=== PATIENT | male | born 1980 | race Caucasian/White ===

== ENCOUNTER 2020-07-28 06:15 | Observation (INO) ==
--- NOTE | 2020-07-15 10:56 | PAT Medication Instructions ---
Medication Instructions Date of Service July 15, 2020 Home Medications Gelatin Otc 1,680 mg PO QPM cabergoline [Dostinex] 0.125 mg PO WK celecoxib [Celebrex] 200 mg PO BID gabapentin 300 mg PO TID glucosamine sulfate 1 mg PO QAM multivitamin 1 tab PO QPM omega-3 fatty acids [Fish Oil Concentrate] 2 mg PO BID Continue as directed cabergoline [Dostinex] 0.125 mg PO WK ASK your surgeon for instructions celecoxib [Celebrex] 200 mg PO BID STOP taking 2 weeks before surgery If surgery is within 2 weeks, stop taking as soon as possible. Gelatin Otc 1,680 mg PO QPM glucosamine sulfate 1 mg PO QAM omega-3 fatty acids [Fish Oil Concentrate] 2 mg PO BID DO NOT take the morning of surgery gabapentin 300 mg PO TID Take evening before surgery gabapentin 300 mg PO TID multivitamin 1 tab PO QPM NOTHING TO EAT OR DRINK AFTER MIDNIGHT Other Notes If you have any questions please call us at [phone] or [phone] or [phone] or [phone]
--- NOTE | 2020-07-15 11:37 | Anesthesiology Consultation ---
Date of Service July 15, 2020 Assessment & Plan (1) Encounter for pre-operative examination: COVID Status: As of 07/15 assessment, patient denies travel to endemic area, known exposure/sick contacts, or symptoms of COVID19. Patient instructed that they and their household members must follow strict social distancing guidelines, wear a mask in public and avoid travel/events/gatherings for 14 days prior to surgery. Preoperative COVID19 testing to be completed prior to surgery per surgeon's arrangements (pt reports to be done 07/22). Patient made aware to self-isolate as much as possible between COVID testing and surgery. He is scheduled for a sleep study the evening of 07/22, but will be masked and only interacting with HCWs with PPE. Chart Review Chart Review: Acceptable Risk for Surgery and Patient seen in Pre Admission Testing Teaching & Discussion Instructed NPO after midnight before surgery, except medications with 15 cc of water. Medication instructions provided according to the PAT guidelines. History Surgery Operation Date: 07/28/20 09:35 Proposed Procedures p C4-C5 Anterior Cervical Discectomy and Fusion, Spinal Cord Monitoring - Reynaldo Anders DO Height/Weight Height: 5 ft 10 in Weight: 83.4 kg Allergies Allergy/AdvReac Type Severity Reaction Status Date / Time CHOLESTATIN Allergy Unknown Unknown Uncoded 07/04/20 11:20 Medications Home Medications Medication Instructions Recorded Confirmed Last Taken Gelatin Otc 1,680 mg PO QPM 07/04/20 07/04/20 Unknown cabergoline [Dostinex] 0.125 mg PO WK 07/04/20 07/04/20 Unknown celecoxib [Celebrex] 200 mg PO BID 07/04/20 07/04/20 Unknown gabapentin 300 mg PO TID 07/04/20 07/04/20 Unknown glucosamine sulfate 1 mg PO QAM 07/04/20 07/04/20 Unknown multivitamin 1 tab PO QPM 07/04/20 07/04/20 Unknown omega-3 fatty acids [Fish Oil 2 mg PO BID 07/04/20 07/04/20 Unknown Concentrate] Past Medical History Medical History (Updated 07/15/20 @ 11:44 by Leo Leggett) Chronic back pain NECK TO UPPER BACK/ARMS ON OCC Elevated prolactin level On cabergoline, following with endocrinology and PCP. No pituitary tumor found on imaging. No significant past medical history Weight loss, intentional 100 LB WT LOSS SINCE 09/2019 Exercise / Class Metabolic Activity 1 > 8 Run/Swim/Ski/Tennis Past Surgical History Surgical History History of anesthesia reaction SLOW TO WAKE. Denies reintubation, unplanned admission, ICU History of carpal tunnel release History of elbow surgery Past Anesthesia History No Hx of Anesthesia Complications and No Family Hx of Anesthesia Complications History of PONV No Hx of PONV and Hx of Motion Sickness STOP BANG Total 2 Social History Smoking Status: Never smoker Do You Dip or Chew Tobacco: No Hx Alcohol Use: No Hx Substance Use: No Review of Systems Pt denies any recent chest pain, shortness of breath, palpitations, cough, fever, URI, or uncontrolled acid reflux. Physical Exam Vital Signs BP: 142/78 (pt reports this is elevated for him, usually 120s systolic) P: 80bpm SPO2: 98% RA T: 98.2 F R: 16 ENMT Mouth: no dental restorations, no chipped teeth and no loose teeth Thyromental Distance: > or= 3.5 Finger Breadths Mallampati Class: I Neck + limited neck extension (mildly) and + facial hair (thick medium length gallagher, pt will shave) Respiratory normal respiratory effort, lungs clear to auscultation Cardiovascular Rate/Rhythm: regular rate and regular rhythm Heart Sounds: no murmur Testing Laboratory Results 07/15/20 12:40 07/15/20 11:49 PT 10.9 Seconds (9.0-12.0) 07/15/20 12:40 INR 1.0 (0.9-1.1) 07/15/20 12:40 APTT 29.9 Seconds (21.0-31.0) 07/15/20 12:40 Urine Color Dark Yellow 07/15/20 12:40 Urine Appearance Clear (Clear) 07/15/20 12:40 Urine pH 5.0 (4.5-7.5) 07/15/20 12:40 Ur Specific [place] 1.024 (1.000-1.030) 07/15/20 12:40 Urine Protein Negative (Negative) 07/15/20 12:40 Urine Glucose (UA) Negative (Negative) 07/15/20 12:40 Urine Ketones Trace (Negative) H 07/15/20 12:40 Urine Nitrite Negative (Negative) 07/15/20 12:40 Ur Leukocyte Esterase Negative (Negative) 07/15/20 12:40 Blood Type A Positive 07/15/20 12:40 Antibody Screen NEGATIVE 07/15/20 12:40 Electrocardiogram Date: 07/15/20 Findings: + NSR @ (62bpm) Chest X-Ray Date: 07/15/20 Findings: + NAD Cervical Spine Date: 11/10/19 No fracture or subluxation within the cervical spine. Mild degenerative changes as described above.
--- NOTE | 2020-07-15 12:28 | XRay Report ---
XR chest Pre-admission PA/Lat CLINICAL HISTORY: Preoperative chest COMPARISON STUDY: No previous studies for comparison. FINDINGS: The cardiac and mediastinal contours are normal. There is no evidence of focal pulmonary co nsolidation. There is no evidence of failure. No pleural effusions are visualized.[ IMPRESSION: No active disease in the chest. ACT 112: Negative or not required by law. Electronically signed by: Master Clayton M.D. 07/15/2020 12:27 PM
[2020-07-15 13:22] LABS: Basophils # (auto) 0.04 K/uL (0-0.2); Basophils % (auto) 0.7 %; Eosinophils # (auto) 0.14 K/uL (0-0.5); Eosinophils % (auto) 2.5 %; Hematocrit (blood only) 45.9 % (42-52); Hemoglobin 15.2 g/dL (14.0-18.0); Immature Granulocytes # (auto) 0.01 K/uL (0.00-0.02); Immature Granulocytes % (auto) 0.2 %; Lymphocytes # (auto) 1.95 K/uL (1.2-3.4); Lymphocytes % (auto) 34.8 %; Mean Corpuscular Hemoglobin 28.3 pg (25-34); Mean Corpuscular Hgb Conc 33.1 g/dL (32-36); Mean Corpuscular Volume 85.5 fL (80-100); Mean Platelet Volume 9.3 fL (7.4-10.4); Monocytes % (auto) 7.1 %; Neutrophils # (auto) 3.06 K/uL (1.4-6.5); Neutrophils % (auto) 54.7 %; Platelet Count 199 K/uL (130-400); RDW Coefficient of Variation 13.9 % (11.5-14.5); RDW Standard Deviation 43.4 fL (36.4-46.3); Red Blood Count 5.37 M/uL (4.7-6.1)
[2020-07-15 13:27] LABS: Appearance Urine Clear (Clear); Bilirubin Urine Negative (Negative); Blood Urine Negative (Negative); Color Urine Dark Yellow; Glucose Urine UA Negative (Negative); Ketones Urine Trace (Negative); Leukocyte Esterase Urine Negative (Negative); Nitrite Urine Negative (Negative); Protein Urine Negative (Negative); Specific Gravity Urine 1.024 (1.000-1.030); Urobilinogen Urine Negative (Negative)
[2020-07-15 13:38] LABS: BUN Creatinine Ratio 18.3 (10-20); Calcium 9.8 mg/dl (8.5-10.1); Creatinine Clr Calc Pharmacy 107.9 ml/min; Est GFR (African American) 117.1; Potassium 4.3 mmol/L (3.5-5.1)
[2020-07-15 13:40] LABS: Partial Thromboplastin Ratio 1.1; Partial Thromboplastin Time 29.9 Seconds (21.0-31.0); Prothrombin Time 10.9 Seconds (9.0-12.0)
--- NOTE | 2020-07-16 05:00 | Electrocardiogram Report ---
Test Reason : Blood Pressure : / mmHG Vent. Rate : 062 BPM Atrial Rate : 062 BPM P-R Int : 178 ms QRS Dur : 084 ms QT Int : 388 ms P-R-T Axes : 055 070 067 degrees QTc Int : 393 ms Normal sinus rhythm Normal ECG No previous ECGs available Confirmed by Soham Julio ([id number]) on 07/16/2020 5:00:13 AM Referred By: Jian Anders Confirmed By:Soham Julio
[~2020-07-28 06:15] MED LIST: ACETAMINOPHEN 500 MG TAB PO SCH; CeleBREX 200 MG CAP PO SCH; GABAPENTIN 900 MG DOSE PO SCH; LR 15ML/HR IV SCH; ceFAZolin 2000MG 2,000 MG/15 ML SYR IV SCH
[2020-07-28] MEDS ORDERED: BACITRACIN INJ 50,000 UNIT VIAL ONE (06:57)
[2020-07-28] MEDS ORDERED: PROPOFOL IV EMULSION 10 MG/ML 100 ML VIAL IV ONE (07:22)
[2020-07-28] MEDS ORDERED: LIDOCAINE 2% JELLY 5 ML TUBE ONE (07:22)
[2020-07-28] MEDS ORDERED: MIDAZOLAM HCL 1 MG/ML 2ML VIAL ONE (07:30)
[2020-07-28] MEDS ORDERED: fentaNYL citrate 100 MCG/2 ML VIAL ONE ×3 (07:30→09:45)
[2020-07-28] MEDS ORDERED: KETAMINE 50 MG/5 ML SYRINGE ONE (07:31)
--- NOTE | 2020-07-28 07:34 | History & Physical Bridge Note ---
Date of Service July 28, 2020 History & Physical Bridge Note I have examined the patient, reviewed the History & Physical and in the interval since the performance of the History & Physical I have noted the following changes of clinical significance: no changes noted
--- NOTE | 2020-07-28 07:35 | History & Physical Report ---
Date of Service July 28, 2020 Assessment & Plan (1) Cervical stenosis of spinal canal: Admission and Anticipated Discharge Date Admission Date: C4-C5 anterior cervical discectomy and fusion History of Present Illness Chief Complaint: Neck and arm pain Primary Care Provider: Kallie Walsh PA-C This is a 40-year-old male who presents with chronic persistent neck and arm pain after failing course of nonoperative care is here for surgical invention. Allergies Allergy/AdvReac Type Severity Reaction Status Date / Time CHOLESTATIN Allergy Unknown Unknown Uncoded 07/28/20 06:43 Home Medications Medication Instructions Recorded Confirmed Type Gelatin Otc 1,680 mg PO QPM 07/04/20 07/04/20 History cabergoline [Dostinex] 0.125 mg PO WK 07/04/20 07/04/20 History celecoxib [Celebrex] 200 mg PO BID 07/04/20 07/04/20 History gabapentin 300 mg PO TID 07/04/20 07/04/20 History glucosamine sulfate 1 mg PO QAM 07/04/20 07/04/20 History multivitamin 1 tab PO QPM 07/04/20 07/04/20 History omega-3 fatty acids [Fish Oil 2 mg PO BID 07/04/20 07/04/20 History Concentrate] Past Med/Surg History Medical History (Updated 07/28/20 @ 07:35 by Jian Anders DO) Chronic back pain NECK TO UPPER BACK/ARMS ON OCC Elevated prolactin level On cabergoline, following with endocrinology and PCP. No pituitary tumor found on imaging. Weight loss, intentional 100 LB WT LOSS SINCE 09/2019 Surgical History History of anesthesia reaction SLOW TO WAKE. Denies reintubation, unplanned admission, ICU History of carpal tunnel release History of elbow surgery Social History Smoking Status: Never smoker Second Hand Exposure: Yes ( A CHILD); Do You Dip or Chew Tobacco: No; Hx Alcohol Use: No Hx Substance Use: No Preferred Language: [place]olan Communication Ability: Effective [employer] Required: No Beliefs That Will Affect Care: None marital status: Single Current Living Situation: Family and Significant Other current occupational status: employed Other Information That Helps Us Care for You: No Feels Safe at Home: Yes Safety Concerns: Feels Safe At This Time Assistive Devices: None Physical Exam Physical Exam: Patient's alert and oriented Heart regular rate and rhythm Lungs clear to auscultation Results & Data ([facility]) Vital Signs (Past 12 Hours) Vital Signs Temp Pulse Resp BP Pulse Ox 07/28/20 06:48 36.5 C 71 16 138/93 99
[2020-07-28] MEDS ORDERED: PROPOFOL IV EMULSION 10 MG/ML 20 ML VIAL IV ONE (08:16)
[2020-07-28] MEDS ORDERED: ONDANSETRON INJ 2 MG/ML 2 ML VIAL ONE ×2 (08:16→08:54)
[2020-07-28] MEDS ORDERED: LIDOCAINE HCL 2% 2 ML VIAL/AMP(20MG/ML) INFIL ONE (08:16)
[2020-07-28] MEDS ORDERED: DEXAMETHASONE SOD INJ 4 MG/ML VIAL ONE (08:16)
[2020-07-28] MEDS ORDERED: FLOSEAL HEMOSTATIC MATRIX 10ML TOP ONE (08:37)
[2020-07-28] MEDS ORDERED: GLYCOPYRROLATE 0.2 MG/ML VIAL ONE (08:49)
[2020-07-28] MEDS ORDERED: NEOSTIGMINE METHYLSULFATE 1 MG/ML 10ML VIAL ONE (08:49)
--- NOTE | 2020-07-28 09:07 | Operative Report ---
Post Operative Report Pre & Post Diagnosis Operation Date: 07/28/20 07:45 Pre-Op Diagnosis: Spinal Stenosis, Cervical Region Post-Op Diagnosis: Spinal Stenosis, Cervical Region I identified the patient and participated in the time-out.: Yes Procedure Operation Date: 07/28/20 07:45 Actual Procedures #1 anterior cervical discectomy with bilateral foraminotomies C4-C5. #2 anterior cervical arthrodesis C4-C5. #3 placement of Spira cage 7 mm in height filled with DBM at C4-C5. #4 application of 5 complete screws across C4-C5. Surgeon Jian Anders, Auto Mechanic Katerina Iyer Estimated Blood Loss 10 Findings Consistent with Post-Op Diagnosis Specimens None Indications This is a 40-year-old male who presents with above-mentioned diagnosis after failing course of nonoperative care is here for surgical invention. Description of Procedure Patient was met with identified informed consent obtained. Patient was then taken to the operative suite underwent an patient placed in supine position Mario Alberto with head Carn[place] head ordered. All bony prominences well-padded eyes inspected to ensure no external pressure placed upon the. This point the anterior cervical spine was prepped and draped in a sterile fashion. The assistance of fluoroscopy identified the C4-C5 to space and a transverse incision was placed along the right anterior aspect of the cervical spinal lines region. Sharp dissection with assistance of bipolar electrocautery was performed down to expose the anterior cervical spine at C4-C5. Self-retaining retractors placed. Then performed a complete discectomy out to the uncovertebral's bilaterally. Removed all posterior annular fibers and longitudi nal ligament. Very large disc herniation was noted in the left neural foramen. After complete decompression endplates were then burred to subcortically bone and a 7 mm spiral cage filled with DBM tapped in position. [place] distractor pins were removed all anterior osteophytes produced with cortical surface and a rice plate and screws applied with the assistance of fluoroscopy. Incision was then copiously irrigated explored to ensure no damage to surrounding structures remaining bleeding. 10 round MICHEL drain inserted. The incision was then closed with 2-0 Vicryl subcutaneously and 4 Monocryl for final skin closure. Steri-Strip sterile dressings placed. Patient waken taken PACU stable condition. Please note spinal cord monitoring was utilized that the procedure no changes noted. Lastly Katerina Iyer was present throughout the entire surgery involved the patient positioning complex portions of the surgery and final skin closure. I attest to the content of the Intraoperative Record and any orders documented therein. Any exceptions are noted below.
--- NOTE | 2020-07-28 09:42 | Fluoroscopy Report ---
FL cervical 2-3V CLINICAL HISTORY: ACDF C4-C5 COMPARISON STUDY: Cervical spine radiographs November 10, 2019. FLUOROSCOPY TIME: 7.4 seconds. FLUOROSCOPIC IMAGES: 2 FINDINGS: Fluoroscopy was provided during C4-C5 anterior discectomy and fusion. Hardware is intact. E ndotracheal tube is noted. Surgical drain is in place. IMPRESSION: Fluoroscopy provided during C4-C5 anterior discectomy and fusion. ACT 112: Negative or not required by law. Electronically signed by: Jose Rousseau M.D. 07/28/2020 9:40 AM
[2020-07-28] MEDS: fentaNYL citrate 100 MCG/2 ML VIAL IV PRN ×2 (09:46→09:51)
[2020-07-28] MEDS ORDERED: ONDANSETRON INJ 2 MG/ML 2 ML VIAL IV PRN ×2 (09:52→10:01)
[2020-07-28] MEDS ORDERED: MEPERIDINE HCL 25 MG/ML CARP/VIAL IV PRN (09:52)
[2020-07-28] MEDS ORDERED: HYDROmorphone INJ 1 MG/ML SYRINGE IV PRN ×2 (09:52→10:01)
[2020-07-28] MEDS ORDERED: ePHEDrine sulfate 50 MG/ML AMP IV PRN (09:52)
[2020-07-28] MEDS ORDERED: LABETALOL HCL IV 5 MG/ML 20ML IV PRN (09:52)
[2020-07-28] MEDS ORDERED: ATROPINE SULFATE 0.1 MG/ML 10ML SYR IV PRN (09:52)
[2020-07-28] MEDS ORDERED: PHENYLEPHRINE 100MCG/ML 5ML SYR IV PRN (09:52)
[2020-07-28] MEDS ORDERED: PROMETHAZINE HCL 12.5 MG in SODIUM CHLORIDE 0.9% 50 ML IV PRN (10:01)
[2020-07-28] MEDS ORDERED: DO NOT ADMINISTER PNEUMOCOCCAL VACCINE PRN (10:01)
[2020-07-28] MEDS ORDERED: SOD PHOSPHATE/SOD BIPHOSPHATE ENEMA 132 ML BTL PR PRN (10:01)
[2020-07-28] MEDS ORDERED: METOCLOPRAMIDE HCL INJ 5 MG/ML 2 ML VIAL IV PRN (10:01)
[2020-07-28] MEDS ORDERED: diphenhydrAMINE Capsule 25 MG CAP PO PRN (10:01)
[2020-07-28] MEDS ORDERED: ACETAMINOPHEN 1,000 MG/100 ML VIAL IV PRN (10:01)
[2020-07-28] MEDS ORDERED: ALUMINUM/MAGNESIUM SUSP 30 ML UDC PO PRN (10:01)
[2020-07-28] MEDS ORDERED: hydrOXYzine HCl 25 MG TAB PO PRN (10:01)
[2020-07-28] MEDS ORDERED: DO NOT ADMINISTER FLU VACCINE PRN (10:01)
[2020-07-28] MEDS ORDERED: LORazepam 0.5 MG/1 ML VIAL IV PRN (10:01)
[2020-07-28] MEDS ORDERED: MAGNESIUM HYDROXIDE SUSP 30 ML UDC PO PRN (10:01)
[2020-07-28] MEDS ORDERED: NALOXONE HCL 0.4 MG/1 ML VIAL/CARP IV PRN (10:01)
[2020-07-28] MEDS ORDERED: DEXAMETHASONE SOD PHOSPHATE 8 MG in SYRINGE 0 ML IV PRN (10:01)
[2020-07-28] MEDS ORDERED: ACETAMINOPHEN 500 MG TAB PO PRN (10:01)
[2020-07-28] MEDS ORDERED: RACEPINEPHRINE 2.25% NEBU SOLN 0.5 ML VIAL INH PRN (10:01)
[2020-07-28] MEDS ORDERED: LORazepam 0.5 MG TAB PO PRN (10:01)
[2020-07-28] MEDS ORDERED: ONDANSETRON 4 MG OD TAB PO PRN (10:01)
[2020-07-28] MEDS ORDERED: FAMOTIDINE 20 MG TAB PO PRN (10:01)
--- NOTE | 2020-07-28 10:44 | Anesthesiology Progress Note ---
Date of Service July 28, 2020 Anesthesia Post Procedure Vital Signs Vital Signs: Temp Pulse Pulse Resp BP Pulse Ox 07/28/20 10:30 60 12 114/82 97 07/28/20 10:20 36.5 C 53 L 12 126/87 98 07/28/20 10:10 47 L 12 121/81 99 07/28/20 10:00 46 L 12 119/78 99 07/28/20 09:50 51 L 12 124/89 100 07/28/20 09:40 50 L 14 122/93 100 07/28/20 09:30 47 L 12 131/87 99 07/28/20 09:21 36 C L 53 L 16 132/96 100 07/28/20 06:48 36.5 C 71 16 138/93 99 Pain Intensity Anterior Neck: Pain Intensity: 3 Transfer of Care Handoff Completed per policy Notes Mental Status: alert / awake / arousable Patient Amnestic to Procedure: Yes Nausea / Vomiting: adequately controlled Pain: adequately controlled Airway Patency, RR, SpO2: stable & adequate BP & HR: stable & adequate Hydration State: stable & adequate Anesthetic Complications: no major complications apparent and Pt Satisfied with anesthetic care Notes: The patient is [id number]. His neck does not appear to be swollen.
[2020-07-28] MEDS ORDERED: LACTATED RINGER'S 1,000 ML IV SCH (11:30)
[2020-07-28] MEDS ORDERED: COUGH DROP (SUGAR FREE) LOZ 24 LOZ/1 BOX BUCCAL STA (11:49)
[2020-07-28] MEDS: oxyCODONE HCL IR 5 MG TAB (IMMEDIATE RELEASE) PO PRN ×3 (13:25→21:15)
[2020-07-28] MEDS: GABAPENTIN 300 MG CAP PO SCH ×2 (13:33→20:00)
[2020-07-28] MEDS: traMADol HCL 50 MG TABLET PO PRN (15:53)
[2020-07-28] MEDS: ceFAZolin 2000MG 2,000 MG/15 ML SYR IV SCH ×2 (15:54→23:16)
[2020-07-28] MEDS: HYDROmorphone INJ 0.5 MG/0.5 ML SYR IV PRN ×2 (19:55→23:15)
[2020-07-28] MEDS ORDERED: DOCUSATE SODIUM/SENNA 50/8.6MG TAB PO SCH (21:00)
[2020-07-29] MEDS: oxyCODONE HCL IR 5 MG TAB (IMMEDIATE RELEASE) PO PRN ×3 (01:06→10:38)
[2020-07-29 06:43] LABS: Basophils # (auto) 0.02 K/uL (0-0.2); Basophils % (auto) 0.2 %; Eosinophils # (auto) 0.03 K/uL (0-0.5); Eosinophils % (auto) 0.3 %; Hemoglobin 13.1 g/dL (14.0-18.0); Immature Granulocytes # (auto) 0.02 K/uL (0.00-0.02); Immature Granulocytes % (auto) 0.2 %; Lymphocytes # (auto) 2.35 K/uL (1.2-3.4); Lymphocytes % (auto) 20.9 %; Mean Corpuscular Hemoglobin 28.2 pg (25-34); Mean Corpuscular Hgb Conc 33.6 g/dL (32-36); Mean Corpuscular Volume 84.1 fL (80-100); Monocytes # (auto) 1.09 K/uL (0.11-0.59); Monocytes % (auto) 9.7 %; Neutrophils # (auto) 7.72 K/uL (1.4-6.5); Neutrophils % (auto) 68.7 %; Platelet Count 184 K/uL (130-400); RDW Coefficient of Variation 13.8 % (11.5-14.5); RDW Standard Deviation 42.1 fL (36.4-46.3); Red Blood Count 4.64 M/uL (4.7-6.1); White Blood Count 11.23 K/uL (4.8-10.8)
[2020-07-29 07:12] LABS: BUN Creatinine Ratio 12.3 (10-20); Calcium 8.8 mg/dl (8.5-10.1); Creatinine Clr Calc Pharmacy 146.9 ml/min; Est GFR (African American) 137.6; Est GFR (Non-African American) 118.7; Potassium 3.6 mmol/L (3.5-5.1)
[2020-07-29] MEDS: POLYETHYLENE (MIRALAX) 17 GM PACK PO SCH ×2 (07:54→11:54)
[2020-07-29] MEDS: GABAPENTIN 300 MG CAP PO SCH (08:05)
[2020-07-29] MEDS: traMADol HCL 50 MG TABLET PO PRN (08:05)
--- NOTE | 2020-07-29 08:47 | Discharge Summary ---
Date of Service July 29, 2020 Admission HPI Per Admitting Provider This is a 40-year-old male who presents with chronic persistent neck and arm pain after failing course of nonoperative care is here for surgical invention. Principal Diagnosis Cervical spinal stenosis with radiculopathy Discharge Data Allergies Allergy/AdvReac Type Severity Reaction Status Date / Time CHOLESTATIN Allergy Unknown Unknown Uncoded 07/28/20 06:43 Procedures Performed Operation Date: 07/28/20 07:45 Actual Procedures p C4-C5 Anterior Cervical Discectomy and Fusion, C4-C5 spira cage, application of DBM, Spinal Cord Monitoring(Not Applicable) - Jian Anders DO Ordered Studies 07/28/20 07:45 FL cervical 2-3V Routine FL fluoroscopy <1hr Routine Hospital Course (1) Cervical stenosis of spinal canal: Patient underwent anterior cervical discectomy fusion tolerated well second orthopedic for postoperative. Postop day 1 he swallowing well arm symptoms improved strength intact. Pain well controlled. Subsequent discharge home. Discharge orders instructions from the chart for further review. Total Time Total Time Spent Total Time Spent (In Minutes): 20 minutes Discharge Plan Discharge Items Patient Disposition: Home - Self-Care Reason For Visit: Spinal Stenosis, Cerivcal Region Discharge Diagnosis: Cervical spinal stenosis with radiculopathy Activity: As commented below Non-emergency contact: Primary Care Provider Call non-emergency contact if: you have any medication questions Follow-up/Referrals: Kallie Walsh PA-C [Primary Care Provider] - Diet: Regular Addtl Attending Provider Instructions: ACTIVITY RECOMMENDATIONS: SELF CARE INSTRUCTIONS AFTER CERVICAL FUSIONS 1. No smoking. Smoking drastically decreases the chance of a solid fusion. 2. No bending, lifting more than 5 pounds, or twisting (roll like a log when turning in bed). 3. You may shower 3 days after surgery. Thoroughly dry wound. Do not soak in the tub. 4. Cervical collar: Must be worn at all times including sleeping. You may remove the brace only to bath, eat and if you are sitting in a recliner. 5. Please walk as much as you can for exercise. Gradually increase the distance that you walk as your endurance increases. SPECIAL CARE INSTRUCTIONS: VERY IMPORTANT TO READ AND REVIEW A. Do not take any anti-inflammatory medications (i.e. Indocin, Advil, Aspirin, Naprosyn, Aleve, Motrin, etc.) as these may inhibit the chance of a solid fusion. Tylenol is okay to take. B. Your surgical incision has been closed with a cosmetic suture under the skin that will dissolve in about 6 weeks. In 14 days, you can use a pair of clean scissors and cut the suture that is left outside of the skin at the ends of your incision. C. Complications are uncommon, but please contact us if you have any signs or symptoms of: 1. wound infection (fever higher than 102.5 degrees F, redness, separation of wound, drainage, or increasing pain from the incision) 2. blood clots in legs (pain, swelling, redness and warmth in legs) 3. urinary tract infection (fever higher than 102.5 degrees, burning upon urination or increased frequency of urination) 4. nerve problems (inability to walk on your toes or heels, numbness, loss of bowel or bladder control) 5. any other symptoms that concern you. D. Please call the office at if you have any concerns or questions about your operation or recovery. MANAGING PAIN AFTER SPINAL SURGERY 1. Narcotic medication is intended for short-term use and will be provided for surgical pain. Surgical pain usually lasts for a period of 4-6 weeks. Narcotic medication includes Percocet, Vicodin, Darvocet, Tylenol #3 or Lortab. 2. Longer-term pain is more appropriately treated with non-narcotic medication such as Tylenol ES. 3. Muscle spasm is not appropriately treated with narcotics. Muscle relaxers such as Soma, Flexeril or Skelaxin can be used along with Tylenol ES. 4. Remember that we all live with some "aches and pains". This is not unusual or uncommon after an injury or as we get older. 5. We will provide appropriate medication within the normal guidelines of their prescribed use. We will also be very cautious and aware of potential abuse and extended duration of patients' medication needs. 6. Please allow 2-3 days to process refills. Prescriptions will not be mailed but must be picked up at the office. FOLLOW UP VISIT: Keep your scheduled follow-up appointment. Any questions, please call the office at . Pending Studies at Discharge: No Stand-Alone Forms: [facility], Smoking Cessation Medications and DC Order Prescriptions: New tramadol 50 mg tablet 50 mg PO Q6H PRN (Reason: pain, moderate) Qty: 15 RF: 0 oxycodone 5 mg tablet 5 mg PO Q6H PRN (Reason: pain, severe) Qty: 15 RF: 0 Continued multivitamin Tablet 1 tab PO QPM RF: 0 celecoxib [Celebrex] 200 mg Capsule 200 mg PO BID RF: 0 cabergoline [Dostinex] 0.5 mg Tablet 0.125 mg PO WK RF: 0 omega-3 fatty acids [Fish Oil Concentrate] 1,000 mg Capsule 2 mg PO BID RF: 0 gabapentin 300 mg Capsule 300 mg PO TID RF: 0 glucosamine sulfate 1,500 mg Powder In Packet 1 mg PO QAM RF: 0 Gelatin Otc 1,680 mg PO QPM RF: 0 Discharge Orders: Discharge Order (Routine); Ordered 07/29/20 Ordered By: Jian Anders Admission Data Admit Date/Time: 07/28/20 09:18 Attending Provider: Jian Anders Admit Provider: Jian Anders Primary Care Provider: Kallie Walsh
[2020-07-30] MEDS ORDERED: bisacodyL 10 MG SUPP PR PRN (09:08)
== END 2020-07-29 13:56 | disposition home or self-care (01) ==
LOC: ASU 06:15 → 3N 06:15